=== PATIENT | female | born 1965 | race African-American/Black ===

== ENCOUNTER 2018-11-02 20:55 | Emergency (ER) | payer OTHER ==
[~2018-11-02] VITALS: Ht 170.2 cm; Wt 106.1 kg
[~2018-11-02 20:55] MED LIST: ASPI-831 PO; BENA5TAB33 PO
[2018-11-02 21:14] VITALS: Ht 170.2 cm; Wt 106.1 kg
[2018-11-02] MEDS ORDERED: CETI10TA19 PO (23:10)
[2018-11-02] MEDS ORDERED: BIOT5000 PO (23:10)
[2018-11-02] MEDS ORDERED: BENA10TA4 PO (23:12)
--- NOTE | 2018-11-03 00:54 | ERD ---
ER Documentation Chief Complaint Chief Complaint chest pain x 1 hour HPI This is a 53-year-old female with a past medical history of hypertension who is presenting with chest pain, beginning 1 hour prior to arrival. The patient repo rts that the pain only lasted a few seconds, but he had a couple episodes of this pain. The patient's first episode occurred at [facility] after having an argument with her . The patient does report being upset when these episodes occurred. The patient's last episode occurred prior to coming into the ER, and she has not had any other episodes since being able to calm down and relax. She denies any diaphoresis. She denies any lightheadedness or dizziness. She denies any nausea or vomiting. She denies any shortness of breath. The patient denies feeling sick recently. The patient denies fever or chills. The patient has had no headache or vision changes. The patient does not endorse neck or back pain. The patient denies abdominal pain. The patient denies changes to bowel movements or urination. The patient has had no focal deficits. The patient has had no weakness or numbness or tingling to the face or extremities. ROS All systems reviewed and are negative except as per history of present illness. Medications Home Meds Reported Medications Benazepril Hcl* (Benazepril Hcl*) 10 Mg Tablet, 10 MG PO DAILY, #30 TAB 11/02/18 Biotin (Biotin) 5,000 Mcg Tab.rapdis, 5000 MCG PO 11/02/18 Cetirizine Hcl* (Cetirizine Hcl*) 10 Mg Tablet, 10 MG PO DAILY, #30 TAB 11/02/18 Discontinued Reported Medications Benazepril Hcl* (Benazepril Hcl*) 5 Mg Tablet, 5 MG PO DAILY, TAB 01/04/15 Discontinued Scripts Aspirin (Aspirin) 81 Mg Chew, 81 MG PO DAILY for 90 Days, TAB Prov:EDGAR DOBBINS MD 01/05/15 Allergies Allergies: Coded Allergies: metoclopramide (Unverified Allergy, Unknown, 11/02/18) PMhx/Soc History of Surgery: Yes () Anesthesia Reaction: No Hx Neurological Disorder: No Hx Respiratory Disorders: No Hx Cardiac Disorders: Yes (Hypertension) Hx Psychiatric Problems: No Hx Miscellaneous Medical Probl: No Hx Alcohol Use: Yes Hx Substance Use: No Hx Tobacco Use: No FmHx Family History: No diabetes Physical Exam Vitals Vital Signs Date Temp Pulse Resp B/P (MAP) Pulse Ox O2 O2 Flow FiO2 Time Delivery Rate 11/02/18 97.2 89 18 161/95 100 21:14 (117) Physical Exam Const: No apparent distress, well-developed, well-nourished Head: Normocephalic, Atraumatic Eyes: Normal Conjunctiva. Extraocular movements intact. Pupils equal, round and reactive to light ENT: Normal External Ears, Nose and Mouth. Neck: Full range of motion. No meningismus. Resp: Clear to auscultation bilaterally, No wheezes, rales or rhonchi Cardio: Regular rate and rhythm. No murmurs, rubs or gallops Abd: Soft, non tender, non distended. Normal bowel sounds Skin: No petechiae or rashes Back: No midline tenderness. No CVA tenderness Ext: No cyanosis, or edema Neur: Awake and alert, oriented 4. Cranial nerves intact. No facial droop. Normal strength, sensation and coordination. Psych: Normal Mood and Affect Result Diagram: 11/02/187 11/02/182346 Results 24 hrs Laboratory Tests Test 11/02/18 23:47 White Blood Count 6.9 10^3/ul Red Blood Count 5.01 10^6/ul Hemoglobin 11.9 g/dl Hematocrit 38.5 % Mean Corpuscular Volume 76.8 fl Mean Corpuscular Hemoglobin 23.8 pg Mean Corpuscular Hemoglobin Concent 30.9 g/dl Red Cell Distribution Width 16.8 % Platelet Count 268 10^3/UL Mean Platelet Volume 9.1 fl Immature Granulocytes % 0.100 % Neutrophils % 49.2 % Lymphocytes % 36.8 % Monocytes % 9.8 % Eosinophils % 3.8 % Basophils % 0.3 % Nucleated Red Blood Cells % 0.0 /100WBC Immature Granulocytes # 0.010 10^3/ul Neutrophils # 3.4 10^3/ul Lymphocytes # 2.5 10^3/ul Monocytes # 0.7 10^3/ul Eosinophils # 0.3 10^3/ul Basophils # 0.0 10^3/ul Nucleated Red Blood Cells # 0.0 10^3/ul Sodium Level 140 mmol/L Potassium Level 3.9 mmol/L Chloride Level 106 mmol/L Carbon Dioxide Level 26 mmol/L Anion Gap 8 Blood Urea Nitrogen 12 mg/dl Creatinine 0.59 mg/dl Est Glomerular Filtrat Rate mL/min > 60 mL/min Glucose Level 120 mg/dl Calcium Level 9.6 mg/dl Troponin I < 0.012 ng/ml Procedures/[facility] MDM The patient's presentation warrants further investigation. Previous medical records, if available, were reviewed. LABS The patient's laboratory testing was obtained and reviewed. No emergent treatment was required unless described below. CBC: No E/o of systemic infection or thrombocytopenia. Mild microcytic anemia, not emergent. BMP: No E/o severe acidosis or alkalosis or renal failure or diabetic ketoacidosis Troponin: No E/o acute ischemia EKG EKG read by me: Rate/Rhythm: Regular rate and rhythm at a rate of 92 bpm Intervals: Normal [place]: Normal Impression: No evidence of acute ischemia or arrhythmia IMAGING Imaging and Radiology interpretation reviewed. CXR FINDINGS: Mediastinum: Unremarkable. Heart size: Normal. Pulmonary vasculature: No visible engorgement. Lungs: Clear. Costophrenic sulci: Clear. Bony structures: Grossly unremarkable for age. IMPRESSION: Unremarkable single view chest. Electronically viewed and signed by Physician Bernadette on 11/03/2018 00:11 TREATMENT/DISPOSITION The patient presents with a few episodes of transient chest pain lasting a few seconds each. The patient's symptoms could be related to stress or anxiety as her symptoms occurred after having an argument with her . That said, this is a diagnosis of exclusion. She does have a cardiac risk factor of hypertension, so a cardiac workup was completed for further assessment. The patient's chest xray does not reveal pneumonia or pneumothorax or pleural effusions or pulmonary edema. She does not have a widened mediastinum and does not have signs or symptoms concerning for thoracic aortic aneurysm or dissection. The patient does not have pneumomediastinum or signs concerning for esophageal tear or rupture. The patient has no clinical or radiographic signs of pericardial effusion or tamponade. The patient does not have pneumoperitoneum and I have decreased suspicion of viscus perforation as possible referred pain. The patient does not have a history of heart failure and I have low suspicion for this. The patient does not have a diagnosis of COPD and is not wheezing today. The patient is not tachypneic or hypoxic. The patient is breathing comfortably and without pleuritic pain. The patient is not on hormonal therapy. The patient has no history of clotting or bleeding disorders. The patient has no calf tenderness. The patient has had no hemoptysis. I have decreased suspicion for PE. The patient's troponin and EKG are reassuring. I have low suspicion for acute coronary syndrome. The patient's HEART score is equal to or less than 3. This stratifies the patient into the low risk (<1%) group for an major adverse cardiac event within the next 30 days. Shared decision making was enacted. The risks and benefits of admission and discharge were discussed with the patient and it was ultimately decided that the patient would be discharged with close outpatient follow up and evaluation for functional testing within 72 hours. Upon reevaluation of the patient, symptoms have improved. No emergent diagnoses were identified. At this time, I feel that the patient stable for discharge. The patient was instructed to follow-up with a primary care physician in 1-3 days. The patient will be given strict precautions with which to return to the emergency department. Prescriptions: None The patient's blood pressure was elevated at greater than 120/80 while in the emergency department. The patient was otherwise stable with no evidence of hypertensive urgency or emergency. The patient does not require admission for blood pressure control. I have discussed with the patient the risks of hypertension. I have instructed the patient to return to the ER for any new or worsening symptoms including chest pain, shortness of breath, headache, blurred vision, confusion, nausea, vomiting or LOC. I have advised the patient to follow up with the primary care physician for outpatient monitoring and treatment for hypertension in 1-3 days. Disclaimer: Inadvertent spelling and grammatical errors are likely due to EHR/dictation software use and do not reflect on the overall quality of patient care. Note that the electronic time recorded on this note does not necessarily reflect the actual time of the patient encounter. Departure Diagnosis: Primary Impression: Nonspecific chest pain Additional Impressions: Elevated blood pressure reading Microcytic anemia Condition: Stable MANDEEP LIVE MD Nov 03, 2018 00:53
[2018-11-03 01:12] VITALS: BP 137/97; PULSE 86; RESP 18
== END 2018-11-03 01:20 | disposition home or self-care (01) ==
LOC: E/R 20:55
DX: R07.9 Chest pain, unspecified (principal); I10 Essential (primary) hypertension; D50.9 Iron deficiency anemia, unspecified
CPT/HCPCS: 36415; 71045; 80048; 84484; 85025; 93005

== ENCOUNTER 2019-04-05 05:44 | Emergency (ER) | payer OTHER ==
[~2019-04-05] VITALS: Ht 170.2 cm; Wt 96.3 kg
[~2019-04-05 05:44] MED LIST changes: -ASPI-831 PO; +BENA10TA4 PO; -BENA5TAB33 PO; +BIOT5000 PO; +CETI10TA19 PO
[2019-04-05 05:45] VITALS: Ht 170.2 cm; Wt 96.3 kg
--- NOTE | 2019-04-05 06:08 | ERD ---
ER Documentation Chief Complaint Chief Complaint N/V X3DAYS WITH ABD PAIN HPI This is a 54-year-old woman complaining of diffuse abdominal cramping with a few episodes of clear nonbloody nonbilious emesis over the last 3 days. She denies fevers or chills, no diarrhea, no blood per rectum, no hematemesis, no complaints of chest pain or shortness of breath. ROS All systems reviewed and are negative except as per history of present illness. Medications Home Meds Active Scripts Ondansetron Hcl* (Zofran*) 4 Mg Tablet, 4 MG PO Q8H PRN for NAUSEA AND/OR VOMITING, #30 TAB Prov:JENNIFER GARCIA MD 04/05/19 Ibuprofen* (Motrin*) 600 Mg Tab, 600 MG PO Q8 PRN for PAIN AND/OR INFLAMMATION, #30 TAB Prov:JENNIFER GARCIA MD 04/05/19 Reported Medications Benazepril Hcl* (Benazepril Hcl*) 10 Mg Tablet, 10 MG PO DAILY, #30 TAB 11/02/18 Biotin (Biotin) 5,000 Mcg Tab.rapdis, 5000 MCG PO 11/02/18 Cetirizine Hcl* (Cetirizine Hcl*) 10 Mg Tablet, 10 MG PO DAILY, #30 TAB 11/02/18 Allergies Allergies: Coded Allergies: metoclopramide (Unverified Allergy, Unknown, 11/02/18) PMhx/Soc Hypertension, anxiety, obesity History of Surgery: Yes (HYSTERECTOMY, CHOLYCYSTECTOMY, COLONOSCOPY) Anesthesia Reaction: No Hx Neurological Disorder: No Hx Respiratory Disorders: No Hx Cardiac Disorders: Yes (Hypertension) Hx Psychiatric Problems: No Hx Miscellaneous Medical Probl: No Hx Alcohol Use: Yes Hx Substance Use: No Hx Tobacco Use: No Smoking Status: Unknown if ever smoked FmHx Family History: No diabetes Physical Exam Vitals Vital Signs Date Temp Pulse Resp B/P (MAP) Pulse Ox O2 O2 Flow FiO2 Time Delivery Rate 04/05/19 68 16 158/88 98 Room Air 08:27 (111) 04/05/19 70 16 128/88 99 Room Air 06:40 (101) 04/05/19 97.3 83 19 135/94 98 05:45 (108) Physical Exam GENERAL: Well-developed, well-nourished, well-hydrated, in no apparent distress, looks nontoxic in appearance CARDIAC: Regular rate and rhythm, no murmurs rubs or gallops LUNGS: Clear bilaterally no wheezing crackles or stridor ABDOMEN: Soft nontender, no guarding, no rigidity, no rebound, no psoas sign no obturator sign. EXTREMITIES: No clubbing cyanosis or edema, calves are bilaterally symmetrical, no Homans sign, no popliteal cord sign. Distal pulses equal and bilateral PSYCH: Normal affect without agitation or irritability Result Diagram: 04/05/19 0632 04/05/19 0632 Results 24 hrs Laboratory Tests Test 04/05/19 06:32 White Blood Count 9.5 10^3/ul Red Blood Count 5.11 10^6/ul Hemoglobin 12.4 g/dl Hematocrit 39.7 % Mean Corpuscular Volume 77.7 fl Mean Corpuscular Hemoglobin 24.3 pg Mean Corpuscular Hemoglobin Concent 31.2 g/dl Red Cell Distribution Width 17.9 % Platelet Count 304 10^3/UL Mean Platelet Volume 9.0 fl Immature Granulocytes % 0.400 % Neutrophils % 69.2 % Lymphocytes % 20.1 % Monocytes % 9.8 % Eosinophils % 0.3 % Basophils % 0.2 % Nucleated Red Blood Cells % 0.0 /100WBC Immature Granulocytes # 0.040 10^3/ul Neutrophils # 6.5 10^3/ul Lymphocytes # 1.9 10^3/ul Monocytes # 0.9 10^3/ul Eosinophils # 0.0 10^3/ul Basophils # 0.0 10^3/ul Nucleated Red Blood Cells # 0.0 10^3/ul Urine Color YELLOW Urine Clarity CLOUDY Urine pH 5.0 Urine Specific [place] 1.023 Urine Ketones 2+ mg/dL Urine Nitrite NEGATIVE mg/dL Urine Bilirubin NEGATIVE mg/dL Urine Urobilinogen 2+ mg/dL Urine Leukocyte Esterase NEGATIVE Letty/ul Urine Microscopic RBC 6 /HPF Urine Microscopic WBC 5 /HPF Urine Squamous Epithelial Cells MODERATE /HPF Urine Bacteria FEW /HPF Urine Mucus FEW /HPF Urine Hemoglobin 2+ mg/dL Urine Glucose NEGATIVE mg/dL Urine Total Protein 1+ mg/dl Sodium Level 142 mmol/L Potassium Level 3.2 mmol/L Chloride Level 102 mmol/L Carbon Dioxide Level 26 mmol/L Anion Gap 14 Blood Urea Nitrogen 6 mg/dl Creatinine 0.49 mg/dl Est Glomerular Filtrat Rate mL/min > 60 mL/min Glucose Level 136 mg/dl Calcium Level 9.1 mg/dl Total Bilirubin 0.5 mg/dl Direct Bilirubin 0.00 mg/dl Indirect Bilirubin 0.5 mg/dl Aspartate Amino Transf (AST/SGOT) 15 IU/L Alanine Aminotransferase (ALT/SGPT) 15 IU/L Alkaline Phosphatase 80 IU/L Troponin I < 0.012 ng/ml Total Protein 8.1 g/dl Albumin 4.2 g/dl Globulin 3.90 g/dl Albumin/Globulin Ratio 1.07 Lipase 60 U/L Current Medications Medications Dose Sig/Patricia Start Time Status Last (Trade) Ordered Route PRN Stop Time Admin Dose Reason Admin Sodium 1,000 ml @ Q1H STAT 04/05/19 DC 04/05/19 Chloride 1,000 mls/hr IV 06:23 06:35 04/05/19 07:22 Ondansetron 4 mg ONCE STAT 04/05/19 DC 04/05/19 HCl (Zofran IV 06:23 06:35 Inj) 04/05/19 06:24 40 ml ONCE STAT 04/05/19 DC Miscellaneous PO 06:23 Medication 04/05/19 06:24 (Gi Cocktail (2)) Belladonna/ 2 tab ONCE STAT 04/05/19 DC 04/05/19 Phenobarbital PO 06:23 06:36 () 04/05/19 06:24 Ketorolac 15 mg ONCE STAT 04/05/19 DC 04/05/19 Tromethamine IV 06:23 06:36 (Toradol) 04/05/19 06:24 Procedures/MDM IV line was established patient was placed on property assessment monitor rhythm strip revealed a sinus rhythm at about 80 bpm with upright P and T waves. Patient was afebrile I administered 1 L normal saline IV, Toradol 15 mg IV, Zofran 4 mg IV, GI cocktail p.o. CBC and electrolytes are normal, liver function tests were normal, troponin was negative, urinalysis negative for infection. Repeat abdominal examination was performed by me she has no guarding or rigidity, no McBurney's point tenderness, no Mills sign although given her complaints of abdominal pain I did tell her to return in 8 to 12 hours for reevaluation and reexamination or earlier if she develops worsening pain, vomiting, fever. Differential diagnoses considered, included but not limited to acute coronary syndrome, pulmonary embolism, aortic dissection, abdominal aortic aneurysm, sepsis, stroke, meningitis, encephalitis, pneumonia, appendicitis, cholecystitis, bowel obstruction, pyelonephritis, nephrolithiasis, cystitis, as well as metabolic, hematologic, and electrolyte abnormalities. As well as ab scess, cellulitis, fractures, and dislocations. Patient feels much better at this time, and vital signs are normal, symptoms have improved. I did give strict instructions to return to the ED if symptoms continue or worsen, patient will otherwise follow-up with primary care physician. Patient understood instructions and agreed to plan. Disclaimer: Inadvertent spelling and grammatical errors are likely due to EHR/dictation software use and do not reflect on the overall quality of patient care. Also, please note that the electronic time recorded on this note does not necessarily reflect the actual time of the patient encounter. Departure Diagnosis: Primary Impression: Abdominal pain Abdominal location: generalized Qualified Codes: R10.84 - Generalized abdominal pain Condition: Good JENNIFER GARCIA MD Apr 05, 2019 06:08
[2019-04-05] MEDS ORDERED: ONDANSETRON 4 MG INJ IV STA (06:23)
[2019-04-05] MEDS ORDERED: BELLADONNA/PHENOBARBITAL TAB PO STA (06:23)
[2019-04-05] MEDS: LIDOCAINE/MYLANTA 40 ML BTL PO STA ×2 (06:23→06:38)
[2019-04-05] MEDS ORDERED: SOD CHLORIDE 0.9% 1,000 ML IV STA (06:23)
[2019-04-05] MEDS ORDERED: KETOROLAC 15 MG INJ IV STA (06:23)
[2019-04-05] MEDS ORDERED: ONDA4TAB8 PO (07:58)
[2019-04-05] MEDS ORDERED: IBUP-1542 PO (07:58)
[2019-04-05 08:27] VITALS: BP 158/88; PULSE 68; RESP 16
== END 2019-04-05 08:28 | disposition home or self-care (01) ==
LOC: E/R 05:44
DX: R10.84 Generalized abdominal pain (principal); I10 Essential (primary) hypertension; E66.9 Obesity, unspecified; Z68.33 Body mass index [BMI] 33.0-33.9, adult
CPT/HCPCS: 36415; 80053; 81001; 83690; 84484; 85025; 96374; 96375; 99284; J1885; J2405; J7030

== ENCOUNTER 2019-04-07 17:48 | Inpatient (IN) | payer OTHER ==
[~2019-04-07] VITALS: Ht 170.2 cm; Wt 96.8 kg
[~2019-04-07 17:48] MED LIST changes: +CARAS PO; +FER325 PO; +IBUP-1542 PO; +ONDA4TAB8 PO; +PANT40TA3 PO
[2019-04-07] MEDS ORDERED: SOD CHLORIDE 0.9% 500 ML IV STA (18:27)
--- NOTE | 2019-04-07 19:57 | ERD ---
ER Documentation Chief Complaint Chief Complaint VOMITING SINCE MONDAY WITH DIZZINESS AND SYNCOPAL EPISODE HPI This is a 54-year-old female who is here for syncope. The patient was seen here on Monday for vomiting abdominal pain with a negative work-up and was sent home. The patient says that she is had nausea vomiting for the past 5 to 6 days but none today. She says she has a chronic history of anemia. She said today she went to the restroom she started feeling bad. She said she finished and went to the living room where she was sitting in a couch she called her family members of her because she was feeling very weak and dizzy. She then apparently passed out. Family states that she was unresponsive for about a minute. The patient says she does remember much of anything. She says she does vaguely remember her son yelling out her to wake up. She had no preceding symptoms other than generalized weakness and dizziness. She had no chest pain shortness of breath. No recent fever. The patient's had one bowel movement in the past 4 days but it has no urged to have one because she is really not eating much food. No headache no focal neurological complaints and speech change ROS All systems reviewed and are negative except as per history of present illness. Medications Home Meds Active Scripts Ondansetron Hcl* (Zofran*) 4 Mg Tablet, 4 MG PO Q8H PRN for NAUSEA AND/OR VOMITING, #30 TAB Prov:JENNIFER GARCIA MD 04/05/19 Ibuprofen* (Motrin*) 600 Mg Tab, 600 MG PO Q8 PRN for PAIN AND/OR INFLAMMATION, #30 TAB Prov:JENNIFER GARCIA MD 04/05/19 Reported Medications Benazepril Hcl* (Benazepril Hcl*) 10 Mg Tablet, 10 MG PO DAILY, #30 TAB 11/02/18 Biotin (Biotin) 5,000 Mcg Tab.rapdis, 5000 MCG PO 11/02/18 Cetirizine Hcl* (Cetirizine Hcl*) 10 Mg Tablet, 10 MG PO DAILY, #30 TAB 11/02/18 Allergies Allergies: Coded Allergies: metoclopramide (Unverified Allergy, Unknown, 11/02/18) PMhx/Soc History of Surgery: Yes (HYSTERECTOMY, CHOLYCYSTECTOMY, COLONOSCOPY) Anesthesia Reaction: No Hx Neurological Disorder: No Hx Respiratory Disorders: No Hx Cardiac Disorders: Yes (Hypertension) Hx Psychiatric Problems: No Hx Miscellaneous Medical Probl: No Hx Alcohol Use: Yes Hx Substance Use: No Hx Tobacco Use: No Smoking Status: Current every day smoker FmHx Family History: No coronary disease Physical Exam Vitals Vital Signs Date Temp Pulse Resp B/P (MAP) Pulse Ox O2 O2 Flow FiO2 Time Delivery Rate 04/07/19 98.5 90 23 140/88 94 Room Air 21:03 (105) 04/07/19 91 21 146/80 96 Room Air 20:30 (102) 04/07/19 88 21 154/86 98 Room Air 20:00 (108) 04/07/19 87 17 139/83 100 Room Air 19:30 (101) 04/07/19 88 132/79 19:06 (96) 84 136/77 (96) 102 116/63 (80) 04/07/19 87 15 136/77 96 Room Air 19:00 (96) 04/07/19 94 17 142/65 Room Air 18:30 (90) 04/07/19 97.7 80 20 111/74 98 17:57 (86) Physical Exam Const: Well-developed, well-nourished Head: Atraumatic, normocephalic Eyes: Normal Conjunctiva, PERRLA, EOMI, normal sclera, no nystagmus ENT: Normal External Ears, Nose and Mouth, moist mucus membranes. Neck: Full range of motion. No meningismus, no lymphadenopathy. Resp: Clear to auscultation bilaterally, no wheezing, rhonchi, rales Cardio: Regular rate and rhythm, no murmurs, S1 S2 present Abd: Soft, non tender x 4, non distended. Normal bowel sounds, no guarding or rebound, no pulsitile abdominal masses or bruits Skin: No petechiae or rashes, no ecchymosis , no maculopapular rash Back: No midline or flank tenderness Ext: No cyanosis, or edema, FROM x 4, normal inspection, neurovascularly intact x 4 Neur: Awake and alert, STR 5/5 x 4, sensation intact x 4, no focal findings, cerebellum intact Psych: Normal Mood and Affect Result Diagram: 04/07/19183804/07/191838 Results 24 hrs Laboratory Tests Test 04/07/19 18:39 White Blood Count 14.1 10^3/ul Red Blood Count 3.90 10^6/ul Hemoglobin 9.3 g/dl Hematocrit 30.3 % Mean Corpuscular Volume 77.7 fl Mean Corpuscular Hemoglobin 23.8 pg Mean Corpuscular Hemoglobin Concent 30.7 g/dl Red Cell Distribution Width 17.3 % Platelet Count 266 10^3/UL Mean Platelet Volume 8.7 fl Immature Granulocytes % 0.600 % Neutrophils % 79.6 % Lymphocytes % 11.5 % Monocytes % 7.9 % Eosinophils % 0.2 % Basophils % 0.2 % Nucleated Red Blood Cells % 0.0 /100WBC Immature Granulocytes # 0.080 10^3/ul Neutrophils # 11.2 10^3/ul Lymphocytes # 1.6 10^3/ul Monocytes # 1.1 10^3/ul Eosinophils # 0.0 10^3/ul Basophils # 0.0 10^3/ul Nucleated Red Blood Cells # 0.0 10^3/ul Prothrombin Time 13.9 Sec Prothrombin Time Ratio 1.1 INR International Normalized Ratio 1.06 Activated Partial Thromboplast Time 21.9 Sec Sodium Level 143 mmol/L Potassium Level 3.2 mmol/L Chloride Level 105 mmol/L Carbon Dioxide Level 29 mmol/L Anion Gap 9 Blood Urea Nitrogen 26 mg/dl Creatinine 0.50 mg/dl Est Glomerular Filtrat Rate mL/min > 60 mL/min Glucose Level 164 mg/dl Calcium Level 8.0 mg/dl Total Bilirubin 0.3 mg/dl Direct Bilirubin 0.00 mg/dl Indirect Bilirubin 0.3 mg/dl Aspartate Amino Transf (AST/SGOT) 14 IU/L Alanine Aminotransferase (ALT/SGPT) 17 IU/L Alkaline Phosphatase 47 IU/L Troponin I < 0.012 ng/ml Total Protein 6.5 g/dl Albumin 3.2 g/dl Globulin 3.30 g/dl Albumin/Globulin Ratio 0.96 Current Medications Medications Dose Sig/Patricia Start Time Status Last (Trade) Ordered Route PRN Stop Time Admin Dose Reason Admin Sodium 500 ml @ Q1H STAT 04/07/19 DC 04/07/19 Chloride 500 mls/hr IV 18:27 19:35 04/07/19 19:26 Procedures/MDM EKG: Rate/Rhythm: Normal sinus rhythm QRS, ST, QT: NORMAL IN, QRS, prolonged QT] Impression: Abnormal EKG [facility] [address], [place], [place] [address] Radiology Main Line: [phone] DIAGNOSTIC IMAGING REPORT Patient: AJIT TEJADA : 1965 Age: 54 Sex: F MR #: [id number] DOS: 04/07/19 1827 Ordering MD: JULIANA PULIDO DO Location: E/R Room/Bed: PROCEDURE: CT BRAIN WITHOUT CONTRAST CLINICAL INDICATION: 54 year-old female. CVA. TECHNIQUE: A CT of the brain was performed on a multi-slice CT scanner utilizing axial imaging from the skull base through the vertex without IV contrast. Multiplanar reformatted images were made. Images were reviewed on a PACS workstation. One or more the following dose reduction techniques were utilized: Automated exposure control, adjustment of mA/ or kV according to patient's size, or use of iterative reconstruction technique. DICOM images are available for review. The CTDIvol = 39.64 mGy. DLP = or 634.23 mGy.cm. COMPARISON: None FINDINGS: No mass effect or midline shift. Normal ventricles for age. No acute intra-axial or extra-axial hemorrhage. No subdural collection. [place] - white matter differentiation is maintained. Visualized paranasal sinuses are clear. Mastoid air cells are clear. IMPRESSION: Negative noncontrast CT brain RPTAT: HLRS Physician Lea Date Time Electronically viewed and signed by Physician Lea on 04/07/2019 20:42 RS/ CC: JULIANA PULIDO DO [id number] [place] [id number] Radiology Main Line: [phone] DIAGNOSTIC IMAGING REPORT Patient: AJIT TEJADA : 1965 Age: 54 Sex: F MR #: [id number] DOS: 04/07/19 1827 Ordering MD: JULIANA PULIDO DO Location: E/R Room/Bed: PROCEDURE: DX CHEST 1 VIEW CLINICAL INDICATION: 54 year-old. Syncope. ED patient. TECHNIQUE: AP Portable chest. COMPARISON: 01/04/2015 elevated right hemidiaphragm, unchanged. Normal cardiac and mediastinal configuration. FINDINGS: Absent Aortic calcified plaque present. No CHF or hilar enlargement. Lungs are clear. Multiple surgical clips in the left upper quadrant. IMPRESSION: No acute disease. RPTAT: [facility] Physician Lea Date Time Electronically viewed and signed by Marily Man Physician on 04/07/2019 20:41 RS/ CC: JULIANA PULIDO DO [id number] Patient's syncopal symptoms are unstable at this time and require inpatient workup. No evidence of PE or dissection at this time but occult ischemia or fatal dysrhythmia cannot be ruled out. Departure Diagnosis: Primary Impression: Syncope Syncope type: unspecified Qualified Codes: R55 - Syncope and collapse Condition: Stable JULIANA PULIDO DO Apr 07, 2019 19:57
[2019-04-07] MEDS ORDERED: SOD CHLORIDE 0.9% 1,000 ML IV SCH (21:10)
[2019-04-07] MEDS ORDERED: POTASSIUM CHLORIDE (SR) 20 MEQ TAB PO STA (21:28)
[2019-04-07] MEDS ORDERED: ACETAMINOPHEN 325 MG TAB PO PRN ×2 (21:30)
[2019-04-07] MEDS ORDERED: NITROGLYCERIN (SL) 0.4 MG TAB SL PRN (21:30)
[2019-04-07] MEDS ORDERED: NACL 0.9% 3 ML SYG IV SCH (21:30)
[2019-04-07] MEDS ORDERED: BISACODYL (EC) 5 MG TAB PO PRN (21:30)
[2019-04-07] MEDS ORDERED: ONDANSETRON 4 MG INJ IV PRN (21:30)
[2019-04-07] MEDS ORDERED: DOCUSATE SODIUM 100 MG CAP PO PRN (21:30)
[2019-04-07] MEDS ORDERED: IOHEXOL 300MG/ML 150 ML BTL ONE (21:37)
[2019-04-07] MEDS ORDERED: SOD CHLORIDE 0.9% 100 ML ONE (21:37)
--- NOTE | 2019-04-07 22:42 | HP ---
Date/Time of Note Date/Time of Note DATE: 04/07/19 TIME: 22:41 Assessment/Plan VTE Prophylaxis SCD applied (from [facility]): Yes Pharmacological prophylaxis: NA/contraindicated Pharm contraindication: low risk/ambulating Assessment/Plan Hospital Course This is a 54-year-old female being admitted to the telemetry floor for: #1 syncope: Vasovagal/orthostatic versus neurocardiogenic versus cardiogenic versus situational: I suspect there may be some vasovagal component to this. Patient does appear to be dehydrated. We will hydrate the patient with normal saline. Her hemoglobin also appears to have dropped from 12 the 9. She denies any bleeding. Given that she did have a colonoscopy approximately 2 weeks ago with removal of polyps we will check a stool occult blood. Will check an echocardiogram. And carotid Doppler. Monitor the patient on telemetry. CT brain negative. Monitor on telemetry. #2 nausea and vomiting with epigastric pain: I will obtain a CT scan of the abdomen and pelvis with IV contrast to further assess. She recently had a colonoscopy approximately 2 weeks ago and had 9 polyps removed. Her hemoglobin has dropped over the last 2 days from 12-9. We will check a stool occult blood. Given that she also has epigastric pain will consult GI for further evaluation. Dr. lora. Pepcid IV #3 chronic anemia: She does have elevated BUN which could be multifactorial secondary to underlying dehydration/blood loss. Patient's hemoglobin was 12.3 on 09/05 and today it is 9.4. She denies any bleeding. She did have a colonoscopy approximately 2 weeks ago with 9 polyps removed. Will check CBC e very 6 hours. Will consult GI #4 dehydration: We will hydrate the patient with normal saline. #5 hypokalemia: Secondary to poor p.o. intake, GI losses. Will replete we will also check a magnesium level #6 leukocytosis: Afebrile. No overt signs of infection. Will monitor closely. This could be a stress reaction. #7 hypertension: Normal medications as indicated #8 DVT GI prophylaxis: SCDs, Pepcid IV Further treatment strategy will be implemented as per the clinical course. Result Diagram: 04/07/19183804/07/19 1839 Results 24hrs Laboratory Tests Test 04/07/19 18:39 White Blood Count 14.1 #H Red Blood Count 3.90 #L Hemoglobin 9.3 #L Hematocrit 30.3 #L Mean Corpuscular Volume 77.7 L Mean Corpuscular Hemoglobin 23.8 L Mean Corpuscular Hemoglobin Concent 30.7 L Red Cell Distribution Width 17.3 H Platelet Count 266 Mean Platelet Volume 8.7 Immature Granulocytes % 0.600 H Neutrophils % 79.6 H Lymphocytes % 11.5 L Monocytes % 7.9 Eosinophils % 0.2 Basophils % 0.2 Nucleated Red Blood Cells % 0.0 Immature Granulocytes # 0.080 H Neutrophils # 11.2 H Lymphocytes # 1.6 Monocytes # 1.1 H Eosinophils # 0.0 Basophils # 0.0 Nucleated Red Blood Cells # 0.0 Prothrombin Time 13.9 Prothrombin Time Ratio 1.1 INR International Normalized Ratio 1.06 Activated Partial Thromboplast Time 21.9 L Sodium Level 143 Potassium Level 3.2 L Chloride Level 105 Carbon Dioxide Level 29 Anion Gap 9 Blood Urea Nitrogen 26 H Creatinine 0.50 Est Glomerular Filtrat Rate mL/min > 60 Glucose Level 164 Calcium Level 8.0 L Magnesium Level 1.2 L Total Bilirubin 0.3 Direct Bilirubin 0.00 Indirect Bilirubin 0.3 Aspartate Amino Transf (AST/SGOT) 14 L Alanine Aminotransferase (ALT/SGPT) 17 Alkaline Phosphatase 47 Troponin I < 0.012 Total Protein 6.5 Albumin 3.2 L Globulin 3.30 H Albumin/Globulin Ratio 0.96 HPI/ROS Admit Date/Time Admit Date/Time Hx of Present Illness Chief complaint: Syncope, nausea vomiting This is a 54-year-old female who is here for syncope. The patient was seen here on Monday for vomiting abdominal pain with a negative work-up and was sent home. The patient says that she is had nausea vomiting since Monday and her last BM was moved Monday she says she has a chronic history of anemia. She said today she went to the restroom she started feeling bad. She said she finished and went to the living room where she was sitting in a couch she called her family members of her because she was feeling very weak and dizzy. She then apparently passed out. Family states that she was unresponsive for about a minute. The patient says she does remember much of anything. She says she does vaguely remember her son yelling out her to wake up. She had no preceding symptoms other than generalized weakness and dizziness. She had no chest pain shortness of breath. No recent fever. The patient's had one bowel movement in the past 4 days but it has no urged to have one because she is really not eating much food. No headache no focal neurological complaints and speech change She approximately 2 weeks ago had a colonoscopy for the removed 9 polyps. Allergies: Reglan Medications: Benazepril 10 mg p.o. daily Ibuprofen every 8 hours as needed Zofran 4 mg p.o. every 8 hours as needed Cetirizine 10 mg p.o. daily Biotin 5000 mcg p.o. daily ROS Const: As per HPI Eyes : No pain discharge or redness or change in visual acuity ENT: No pain, sore throat, congestion, congestion, dysphagia or discharge Respiratory: No shortness of breath, cough, sputum, wheezing, or pleuritic pain Cardiovascular: No chest pain, palpitation, PND, or edema GI : As per HPI Genitourinary: No dysuria, hematuria, flank pain , discharge or CVA tenderness Musculoskeletal: No joint pain, back pain, neck pain, restricted range of motion in neck or joints Skin: No rash, bruising or hives Neuro: No headache, dizziness, syncope, seizure, focal weakness Endocrine: No polyuria, polydipsia, temperature intolerance Psych: No hallucination, depression, anxiety or suicidal ideation PMH/Family/Social Past Medical History htn Colonic polyps removed via colonoscopy approximately 9 days ago Medications Current Medications Sodium Chloride 1,000 ml @ 80 mls/hr [id number] IV ; Start 04/07/19 at 21:10; Stop 04/08/19 at 09:39 Ondansetron HCl (Zofran Inj) 4 mg ER BRIDGE PRN IV NAUSEA/VOMITING; Start 04/07/19 at 21:30; Stop 04/08/19 at 21:29 Acetaminophen (Tylenol Tab) 650 mg ER BRIDGE PRN PO .MILD PAIN 1-3 OR TEMP; Start 04/07/19 at 21:30; Stop 04/08/19 at 21:29 IV Flush (NS 3 ml) 3 ml PER PROTOCOL IV ; Start 04/07/19 at 21:30 Ondansetron HCl (Zofran Inj) 4 mg Q6H PRN IV NAUSEA/VOMITING; Start 04/07/19 at 21:30 Nitroglycerin (Nitroglycerin (Sl Tab) 0.4 Mg) 1 tab Q5M PRN SL .CHEST PAIN; Start 04/07/19 at 21:30 Acetaminophen (Tylenol Tab) 650 mg Q6H PRN PO .PAIN 1-3 OR TEMP; Start 04/07/19 at 21:30 Docusate Sodium (Colace) 100 mg Q12H PRN PO .CONSTIPATION; Start 04/07/19 at 21:30 Bisacodyl (Dulcolax) 5 mg DAILY PRN PO .CONSTIPATION; Start 04/07/19 at 21:30 Coded Allergies: metoclopramide (Unverified Allergy, Unknown, 11/02/18) Past Surgical History hysterectomy, cholecystectomy, colonoscopy 9 days ago where they removed polyps Family History Significant Family History: no pertinent family hx Social History Alcohol Use: none Smoking Status: Former smoker Drug Use: none Exam/Review of Systems Vital Signs Vitals Vital Signs Date Temp Pulse Resp B/P (MAP) Pulse Ox O2 O2 Flow FiO2 Time Delivery Rate 04/07/19 101 24 133/91 98 Room Air 22:00 (105) 04/07/19 98.5 21:03 Exam Exam General: Patient currently lying in bed in no acute distress HEENT: Atraumatic, normocephalic. The pupils are equal, round and reactive. Extraocular motor are intact, mucous membranes dry Neck: Supple with full range of motion. No rigidity or meningismus Chest: Nontender Lungs: Clear to auscultation bilaterally no crackles rales or wheezing Heart: Normal S1-S2, Regular rhythm and rate. No murmur, S3, or S4 Abdomen: Soft , epigastric tenderness to palpation nondistended , bowel sounds are present. No guarding no rebound tenderness , No masses or organomegaly. No costovertebral temporal angle mass Extremities: Normal to inspection, no edema no cyanosis Neurologic: Normal mental status, speech normal, cranial nerves II through XII are intact, motor and sensory are intact, Additional Comments PROCEDURE: CT BRAIN WITH CONTRAST CLINICAL INDICATION: 54 year-old female. Syncope. TECHNIQUE: A CT of the brain was performed on a multi-slice CT scanner utilizing axial imaging from the skull base through the vertex with IV contrast. Multiplanar reformatted images were made. One or more the following dose reduction techniques were utilized: Automated exposure control, adjustment of the mA/ or kV according to patient's size, or use of iterative reconstruction technique. DICOM images are available for review on a PACS workstation. The CTDIvol = 39.64 mGy. DLP = or 634.23 mGy.cm. CONTRAST: 60 cc Omnipaque-300 IV COMPARISON: CT brain without contrast 04/07/2019. FINDINGS: No mass effect or midline shift. Normal ventricles for age. No acute intra-axial or extra-axial hemorrhage. No subdural collection. [place] - white matter differentiation is maintained. No abnormal enhancement. Visualized paranasal sinuses are clear. Mastoid air cells are clear. IMPRESSION: 1. Negative contrast enhanced CT brain exam. RPTAT: HLRS Marily Man Physician Date Time Electronically viewed and signed by Marily Man Physician on 04/07/2019 22:25 RS/ CC: JULIANA PULIDO DO [id number] PROCEDURE: CT BRAIN WITHOUT CONTRAST CLINICAL INDICATION: 54 year-old female. CVA. TECHNIQUE: A CT of the brain was performed on a multi-slice CT scanner utilizing axial imaging from the skull base through the vertex without IV contrast. Multiplanar reformatted images were made. Images were reviewed on a PACS workstation. One or more the following dose reduction techniques were utili zed: Automated exposure control, adjustment of mA/ or kV according to patient's size, or use of iterative reconstruction technique. DICOM images are available for review. The CTDIvol = 39.64 mGy. DLP = or 634.23 mGy.cm. COMPARISON: None FINDINGS: No mass effect or midline shift. Normal ventricles for age. No acute intra-axial or extra-axial hemorrhage. No subdural collection. [place] - white matter differentiation is maintained. Visualized paranasal sinuses are clear. Mastoid air cells are clear. IMPRESSION: Negative noncontrast CT brain RPTAT: HLRS Marily Man Physician Date Time Electronically viewed and signed by Marily Man Physician on 04/07/2019 20:42 RS/ CC: JULIANA PULIDO DO [id number] PROCEDURE: DX CHEST 1 VIEW CLINICAL INDICATION: 54 year-old. Syncope. ED patient. TECHNIQUE: AP Portable chest. COMPARISON: 01/04/2015 elevated right hemidiaphragm, unchanged. Normal cardiac and mediastinal configuration. FINDINGS: Absent Aortic calcified plaque present. No CHF or hilar enlargement. Lungs are clear. Multiple surgical clips in the left upper quadrant. IMPRESSION: No acute disease. RPTAT: HLRS Marily Man Physician Date Time Electronically viewed and signed by Marily Man Physician on 04/07/2019 20:41 RS/ CC: JULIANA PULIDO DO [id number] ZIA ADORNO Apr 07, 2019 22:42
[2019-04-07 23:00] VITALS: Ht 170.2 cm; Wt 96.8 kg
[2019-04-07] MEDS ORDERED: IOHEXOL 14.3 MG(I)/ML (ADULT) BTL PO ONE (23:30)
[2019-04-07] MEDS: morphine 2 MG INJ IV PRN (23:58)
[2019-04-08] VITALS: BP 157/77; PULSE 67
[2019-04-08] MEDS ORDERED: MAGNESIUM SULFATE 3 GM in DEXTROSE 5% 100 ML IVPB SCH (00:30)
[2019-04-08] MEDS ORDERED: IOHEXOL 300MG/ML 150 ML BTL ONE (00:50)
[2019-04-08] MEDS ORDERED: SOD CHLORIDE 0.9% 100 ML ONE (00:50)
[2019-04-08 04:00] VITALS: BP 134/79; PULSE 92
[2019-04-08] MEDS: morphine 2 MG INJ IV PRN ×3 (05:01→19:32)
[2019-04-08 07:47] VITALS: BP 138/62; PULSE 54; RESP 18
[2019-04-08] MEDS: POLYETHYLENE GLYCOL 17 GM PACKET PO SCH ×3 (08:13→09:00)
[2019-04-08] MEDS: DOCUSATE SODIUM 100 MG CAP PO SCH ×2 (08:13→22:31)
[2019-04-08] MEDS: FAMOTIDINE 20 MG INJ IV SCH (08:14)
[2019-04-08] MEDS: LORATADINE 10 MG TAB PO SCH (08:14)
[2019-04-08] MEDS: ONDANSETRON 4 MG INJ IV PRN (10:30)
[2019-04-08] MEDS: SOD CHLORIDE 0.9% 1,000 ML IV SCH (10:30)
[2019-04-08] MEDS: POTASSIUM CHLORIDE 100 ML IVPB SCH ×2 (11:51→12:30)
[2019-04-08 11:58] VITALS: BP 149/78; PULSE 90; RESP 18
[2019-04-08] MEDS ORDERED: NA PHOSPHATE/BIPHOS 133 ML ENEMA PR PRN (12:30)
[2019-04-08] MEDS ORDERED: POTASSIUM CHLORIDE (SR) 20 MEQ TAB PO ONE (13:00)
--- NOTE | 2019-04-08 13:36 | RADRPT ---
Echocardiogram Report Patient Name: AJIT TEJADAPatient ID: [id number] : 1965 (54y 1m)Study Date: 04/08/2019 7:51:30 AM Gender: FAccession #: [id number] Tech: Daniel Son [facility] Location: [id number] Ref.Physician: ZIA ADORNO Height(Cm): BSA: Weight(Kg): Quality: AdequateOrder Physician: ZIA ADORNO Account #: Procedures: Echocardiographic Report: Transthoracic echocardiogram with complete 2D, M-Mode, and doppler examination. Indications: Syncope. Measurements: 2D/M Mode Doppler Measurement Value Normal Range Measurement Value Normal Range LVIDd 2D 4.5 [ 3.8 - 5.2 ] cm AV Peak Matt 1.8 [ 100.0 - 170.0 ] cm/sec LVIDs 2D 1.9 [ 2.2 - 3.5 ] cm AV Peak PG 13.0 [ 2.0 - 9.0 ] mmHg LVPWd 2D 0.9 [ 0.6 - 0.9 ] cm LVOT Peak Matt 1.4 [ 70.0 - 110.0 ] cm/sec IVSd 2D 0.9 [ 0.6 - 0.9 ] cm LVOT Peak PG 8.0 [ 2.0 - 6.0 ] mmHg AoR Diam 2D 2.6 [ 2.3 - 3.1 ] cm MV E Peak Matt 0.6 [ 60.0 - 130.0 ] cm/sec EDV 2D 93.4 [ 46.0 - 106.0 ] ml MV A Peak Matt 0.7 [ 100.0 - 120.0 ] cm/sec ESV 2D 11.3 [ 14.0 - 42.0 ] ml MV E/A 0.9 [ 0.8 - 1.5 ] ratio EF 2D 87.9 [ 54.0 - 74.0 ] percent MV Decel Time 158 [ 104 - 258 ] msec LA Dimen 2D 2.9 [ 2.7 - 3.8 ] cm Lat E` Matt 0.1 [ 10.0 - 15.0 ] cm/sec Lateral E/E` 4.6 [ 1.0 - 2.0 ] ratio Med E` Matt 0.1 cm/sec MV E/A 0.9 [ 0.8 - 1.5 ] ratio TR Peak Matt 2.3 [ 100.0 - 280.0 ] cm/sec TR Peak PG 20.0 mmHg RVSP 23.0 [ 10.0 - 36.0 ] mmHg RA Pressure 3.0 mmHg Findings: Left Ventricle: Normal left ventricular systolic function. Normal left ventricular cavity size. Normal left ventricular wall thickness. Ejection fraction is visually estimated at 60-65 %. Tissue Doppler/Mitral Doppler indices are consistent with impaired relaxation (Stage I diastolic dysfunction). Right Ventricle: Normal right ventricular size. Normal right ventricular systolic function. Left Atrium: The left atrium is normal in size. Right Atrium: The right atrium is normal in size. Mitral Valve: Mitral valve leaflets appear mildly thickened. Mild mitral annular calcification. Trace mitral regurgitation. Aortic Valve: Normal appearance of the aortic valve. No significant aortic stenosis or insufficiency. Tricuspid Valve: Normal appearance and function of the tricuspid valve with trace physiologic regurgitation. Normal right ventricular systolic pressure. The estimated Peak RVSP is 23 mmHg. Pulmonic Valve: Normal pulmonic valve appearance. Pericardium: Normal pericardium with no significant pericardial effusion. Aorta: Normal aortic root. IVC: Normal size and normal respiratory collapse consistent with normal right atrial pressure. Conclusions: Normal left ventricular systolic function. Normal left ventricular cavity size. Normal left ventricular wall thickness. Ejection fraction is visually estimated at 60-65 %. Tissue Doppler/Mitral Doppler indices are consistent with impaired relaxation (Stage I diastolic dysfunction). ). Mitral valve leaflets appear mildly thickened. Mild mitral annular calcification. Trace mitral regurgitation. Normal appearance and function of the tricuspid valve with trace physiologic regurgitation. Normal right ventricular systolic pressure. The estimated Peak RVSP is 23 mmHg. Electronically Signed By: Murali Dubois 2019-04-08 13:35:37 PDT
--- NOTE | 2019-04-08 15:09 | PN ---
Date/Time of Note Date/Time of Note DATE: 04/08/19 TIME: 14:46 Assessment/Plan VTE Prophylaxis [place] [facility] [place]: 1 [place]CD applied [place] [facility] [place] Yes Pharmacological prophylaxis: NA/contraindicated Pharm contraindication: other Lines/Catheters IV Catheter Type (from [facility]): Peripheral IV Urinary Cath still in place: No Assessment/Plan Hospital Course #1 syncope secondary to hypovolemia from dehydration and/or acute blood loss Patient with azotemia suggesting possible GI bleed and/or dehydration, continue IV fluids CT brain negative Follow-up on echo and carotid Doppler Monitor on telemetry #2 nausea and vomiting with epigastric pain: CT abdomen is negative for acute findings No sick contacts or diarrhea GI consultation obtained with Dr. Yue Bautista IV Patient status post recent colonoscopy approximately 2 weeks ago with removal of polyps, follow-up on stool occult blood #3 Anemia possible secondary to GI bleed Patient with recent hemoglobin that was within normal limits several days ago Drop in hemoglobin may be dilutional and/or secondary to GI bleed GI consultation obtained Follow-up on stool occult Patient denies any adeline blood or melena Patient status post colonoscopy 2 weeks ago with 9 polyps removed #4 Constipation Enema #5 Hypokalemia/hypomagnesemia Repleted #6 leukocytosis: Afebrile. No overt signs of infection. Will monitor closely. This could be a stress reaction. #7 hypertension: Resume benazepril #8 DVT GI prophylaxis: SCDs, Pepcid IV Result Diagram: 04/08/19 1032 04/08/19 0532 Results 24hrs Laboratory Tests Test 04/07/19 18:39 04/08/19 05:32 04/08/19 10:32 White Blood Count 14.1 #H 11.5 H 11.9 H Red Blood Count 3.90 #L 3.45 L 3.30 L Hemoglobin 9.3 #L 8.6 L 8.3 L Hematocrit 30.3 #L 27.1 L 26.2 L Mean Corpuscular Volume 77.7 L 78.6 L 79.4 L Mean Corpuscular Hemoglobin 23.8 L 24.9 L 25.2 L Mean Corpuscular Hemoglobin Concent 30.7 L 31.7 L 31.7 L Red Cell Distribution Width 17.3 H 17.3 H 17.4 H Platelet Count 266 272 255 Mean Platelet Volume 8.7 9.0 8.8 Immature Granulocytes % 0.600 H 0.300 0.400 Neutrophils % 79.6 H 73.0 74.5 Lymphocytes % 11.5 L 18.5 17.8 Monocytes % 7.9 7.7 6.7 Eosinophils % 0.2 0.3 0.4 Basophils % 0.2 0.2 0.2 Nucleated Red Blood Cells % 0.0 0.0 0.0 Immature Granulocytes # 0.080 H 0.040 H 0.050 H Neutrophils # 11.2 H 8.4 H 8.9 H Lymphocytes # 1.6 2.1 2.1 Monocytes # 1.1 H 0.9 0.8 Eosinophils # 0.0 0.0 0.1 Basophils # 0.0 0.0 0.0 Nucleated Red Blood Cells # 0.0 0.0 0.0 Prothrombin Time 13.9 Prothrombin Time Ratio 1.1 INR International Normalized Ratio 1.06 Activated Partial Thromboplast Time 21.9 L Sodium Level 143 143 Potassium Level 3.2 L 3.4 L Chloride Level 105 106 Carbon Dioxide Level 29 29 Anion Gap 9 8 Blood Urea Nitrogen 26 H 17 # Creatinine 0.50 0.50 Est Glomerular Filtrat Rate mL/min > 60 > 60 Glucose Level 164 128 Calcium Level 8.0 L 8.2 L Magnesium Level 1.2 L 2.2 # Total Bilirubin 0.3 0.3 Direct Bilirubin 0.00 0.00 Indirect Bilirubin 0.3 0.3 Aspartate Amino Transf (AST/SGOT) 14 L 14 L Alanine Aminotransferase (ALT/SGPT) 17 13 Alkaline Phosphatase 47 54 Troponin I < 0.012 Total Protein 6.5 6.4 Albumin 3.2 L 3.2 L Globulin 3.30 H 3.20 Albumin/Globulin Ratio 0.96 1.00 Hemoglobin A1c 5.8 Iron Level 41 Total Iron Binding Capacity 285 Percent Iron Saturation 14 L Ferritin 32.6 Triglycerides Level 79 Cholesterol Level 126 LDL Cholesterol, Calculated 81 HDL Cholesterol 29 L Cholesterol/HDL Ratio 4.3 Thyroid Stimulating Hormone (TSH) 0.909 Subjective 24 Hr Interval Summary Gastrointestinal: nausea, vomiting Exam/Review of Systems Exam Vitals Vital Signs Date Temp Pulse Resp B/P (MAP) Pulse Ox O2 O2 Flow FiO2 Time Delivery Rate 04/08/19 98.2 90 18 149/78 98 11:58 (101) 04/07/19 Room Air 22:30 Intake and Output 04/07/19 04/07/19 04/08/19 1515:00 23:00 07:00 IntakeIntake Total 156 ml BalanceBalance 156 ml Constitutional: alert, oriented Respiratory: clear to auscultation Cardiovascular: regular rate and rhythm Gastrointestinal: soft; No distended Musculoskeletal: nl extremities to inspection Results Results 24hrs Laboratory Tests Test 04/07/19 18:39 04/08/19 05:32 04/08/19 10:32 White Blood Count 14.1 #H 11.5 H 11.9 H Red Blood Count 3.90 #L 3.45 L 3.30 L Hemoglobin 9.3 #L 8.6 L 8.3 L Hematocrit 30.3 #L 27.1 L 26.2 L Mean Corpuscular Volume 77.7 L 78.6 L 79.4 L Mean Corpuscular Hemoglobin 23.8 L 24.9 L 25.2 L Mean Corpuscular Hemoglobin Concent 30.7 L 31.7 L 31.7 L Red Cell Distribution Width 17.3 H 17.3 H 17.4 H Platelet Count 266 272 255 Mean Platelet Volume 8.7 9.0 8.8 Immature Granulocytes % 0.600 H 0.300 0.400 Neutrophils % 79.6 H 73.0 74.5 Lymphocytes % 11.5 L 18.5 17.8 Monocytes % 7.9 7.7 6.7 Eosinophils % 0.2 0.3 0.4 Basophils % 0.2 0.2 0.2 Nucleated Red Blood Cells % 0.0 0.0 0.0 Immature Granulocytes # 0.080 H 0.040 H 0.050 H Neutrophils # 11.2 H 8.4 H 8.9 H Lymphocytes # 1.6 2.1 2.1 Monocytes # 1.1 H 0.9 0.8 Eosinophils # 0.0 0.0 0.1 Basophils # 0.0 0.0 0.0 Nucleated Red Blood Cells # 0.0 0.0 0.0 Prothrombin Time 13.9 Prothrombin Time Ratio 1.1 INR International Normalized Ratio 1.06 Activated Partial Thromboplast Time 21.9 L Sodium Level 143 143 Potassium Level 3.2 L 3.4 L Chloride Level 105 106 Carbon Dioxide Level 29 29 Anion Gap 9 8 Blood Urea Nitrogen 26 H 17 # Creatinine 0.50 0.50 Est Glomerular Filtrat Rate mL/min > 60 > 60 Glucose Level 164 128 Calcium Level 8.0 L 8.2 L Magnesium Level 1.2 L 2.2 # Total Bilirubin 0.3 0.3 Direct Bilirubin 0.00 0.00 Indirect Bilirubin 0.3 0.3 Aspartate Amino Transf (AST/SGOT) 14 L 14 L Alanine Aminotransferase (ALT/SGPT) 17 13 Alkaline Phosphatase 47 54 Troponin I < 0.012 Total Protein 6.5 6.4 Albumin 3.2 L 3.2 L Globulin 3.30 H 3.20 Albumin/Globulin Ratio 0.96 1.00 Hemoglobin A1c 5.8 Iron Level 41 Total Iron Binding Capacity 285 Percent Iron Saturation 14 L Ferritin 32.6 Triglycerides Level 79 Cholesterol Level 126 LDL Cholesterol, Calculated 81 HDL Cholesterol 29 L Cholesterol/HDL Ratio 4.3 Thyroid Stimulating Hormone (TSH) 0.909 Medications Medication Current Medications IV Flush (NS 3 ml) 3 ml PER PROTOCOL IV ; Start 04/07/19 at 21:30 Ondansetron HCl (Zofran Inj) 4 mg Q6H PRN IV NAUSEA/VOMITING Last administered on 04/08/19at 10:30; Admin Dose 4 MG; Start 04/07/19 at 21:30 Nitroglycerin (Nitroglycerin (Sl Tab) 0.4 Mg) 1 tab Q5M PRN SL .CHEST PAIN; Start 04/07/19 at 21:30 Acetaminophen (Tylenol Tab) 650 mg Q6H PRN PO .PAIN 1-3 OR TEMP; Start 04/07/19 at 21:30 Docusate Sodium (Colace) 100 mg Q12H PRN PO .CONSTIPATION; Start 04/07/19 at 21:30 Bisacodyl (Dulcolax) 5 mg DAILY PRN PO .CONSTIPATION; Start 04/07/19 at 21:30 Morphine Sulfate (morphine) 2 mg Q4H PRN IV SEVERE PAIN LEVEL 7-10 Last administered on 04/08/19at 10:31; Admin Dose 2 MG; Start 04/07/19 at 23:30 Docusate Sodium (Colace) 100 mg BID PO Last administered on 04/08/19at 08:13; Admin Dose 100 MG; Start 04/08/19 at 09:00 Polyethylene Glycol (Miralax) 17 gm DAILY PO ; Start 04/08/19 at 09:00 Loratadine (Claritin) 10 mg DAILY PO Last administered on 04/08/19at 08:14; Admin Dose 10 MG; Start 04/08/19 at 09:00 Famotidine (Pepcid Iv) 20 mg DAILY IV Last administered on 04/08/19at 08:14; Admin Dose 20 MG; Start 04/08/19 at 09:00 Sodium Chloride 1,000 ml @ 70 mls/hr [id number] IV Last administered on 04/08/19at 10:30; Admin Dose 70 MLS/HR; Start 04/08/19 at 10:00 Sodium Biphosphate/ Sodium Phosphate (Fleet Enema) 133 ml DAILY PRN [place] CONSTIPATION; Start 04/08/19 at 12:30 Benazepril HCl (Lotensin) 10 mg DAILY PO ; Start 04/08/19 at 14:30 JOSH HOLLINGSWORTH Apr 08, 2019 14:57
[2019-04-08 15:20] VITALS: BP 131/78; PULSE 99; RESP 18
[2019-04-08] MEDS: BENAZEPRIL 10 MG TAB PO SCH (15:49)
[2019-04-08 20:00] VITALS: BP 134/69; PULSE 91; RESP 19
[2019-04-09] VITALS (14 sets, daily range): BP systolic 109–160; BP diastolic 56–86; PULSE 81–103; RESP 15–21
[2019-04-09] MEDS: SOD CHLORIDE 0.9% 1,000 ML IV SCH ×2 (00:43→14:08)
--- NOTE | 2019-04-09 01:58 | CONS ---
DATE OF ADMISSION: 04/07/2019 DATE OF CONSULTATION: TYPE OF CONSULTATION: Gastroenterology. REQUESTING PHYSICIAN: Dr. Weaver, thank you for asking me to see Mrs. Matta in GI consultation. HISTORY OF PRESENT ILLNESS: The patient, as you know, is a 54-year-old female who h as been experiencing abdominal pain and vomiting intermittently for the past 10 days and vomiting has been occurring every 1 day or every 2 days or every 3 days. The vomitus did not contain any blood. No history of diarrhea, no history of fever, no history of jaundice. She did have some kind of a ga stric surgery in the past. She had a colonoscopy and removal of 10 polyps and was done about 10 days ago. No history of bleeding from the rectum. Stool has been dark brown. She drinks alcohol. SOCIAL HISTORY: She drinks alcohol occasionally, including marijuana periodically. REVIEW OF SYSTEM: Essentially as mentioned in history and physical. History of chronic anemia, hype rtension. MEDICATIONS PRIOR TO THE ADMISSION INCLUDE: 1. Benazepril. 2. Ibuprofen. 3. Zofran. 4. Cetirizine. 5. Biotin. PHYSICAL EXAMINATION: GENERAL: The patient is a 54-year-old female who at this time she is alert, she is well built. VITAL SIGNS: She is afebrile. Temperature 98.0. The blood pressure 131/78, pulse is 90. CARDIOVASCULAR: Normal heart sounds. RESPIRATORY: Normal breath sounds. ABDOMEN: Showed unremarkable findings. LABORATORY WORKUP: The WBC count is 11,300. It was 14,100 yesterday, hemoglobin is 8.2, MCV is 79.2 , potassium 3.4, bilirubin 0.3, AST 14, ALT 13, alkaline phosphatase 54. IMAGING STUDIES: Show that CAT scan of the abdomen revealing evidence of a small hiatal hernia, prior gastric surgery, status post cholecystectomy with mild dilatation of the biliary tree. Moderate retained stool in th e colon. A few scattered sigmoid diverticula noted. CLINICAL IMPRESSION: The patient presenting with history of periodic intermittent abdominal pain and vomiting. Certainly possible she could have a marginal ulcer from the prior gastric surgery; gastri tis must be considered. Choledocholithiasis is a possibility because she has a dilated biliary syste m on the CAT scan, although the liver functions are normal. Based on the fact that she has anemia, one should rule out a possibility of colorectal neoplasm. History of hypertension, history of gastric surgery, history of a cholecystectomy. PLAN: At this time, I would recommend upper endoscopy as well as MRCP. She may need a colonoscopy a s well. Once again, doctor, I thank you for this consultation. Dictated By: JOSE JACOBO MD NC/NTS Conf#: [id number] DID#: [id number] CC: ZIA WEAVER MD;*EndCC*
[2019-04-09] MEDS: DOCUSATE SODIUM 100 MG CAP PO SCH ×2 (08:47→20:41)
[2019-04-09] MEDS: LORATADINE 10 MG TAB PO SCH (08:47)
[2019-04-09] MEDS: POLYETHYLENE GLYCOL 17 GM PACKET PO SCH (08:47)
[2019-04-09] MEDS: FAMOTIDINE 20 MG INJ IV SCH (09:04)
[2019-04-09] MEDS: BENAZEPRIL 10 MG TAB PO SCH (09:05)
--- NOTE | 2019-04-09 13:06 | QN ---
Documentation Comment As physician advisor, I have reviewed the chart and found that inpatient status is appropriate for this patient. Syncope due to apparent anemia and blood loss, requiring extensive workup to include endoscopy. Stay has exceeded two midnights. LACY RODRIGUES MD Apr 09, 2019 13:06
--- NOTE | 2019-04-09 13:31 | PN ---
Date/Time of Note Date/Time of Note DATE: 04/09/19 TIME: 13:18 Assessment/Plan VTE Prophylaxis Risk score (from [facility] [place])>0 risk: 3 SCD applied (from [facility] [place]): Yes Pharmacological prophylaxis: other Pharm contraindication: other Lines/Catheters IV Catheter Type (from [facility]): Saline Lock Urinary Cath still in place: No Assessment/Plan Assessment/Plan 1. Syncope, considered hypotension related from dehydration and severe anemia 2. Dehydration from GI loss, improved with IVF 3. Intermitted abdominal pain with nausea and vomiting, EGD today 4. Microcytic anemia, recent colonoscopy with polys, EGD today, follow up with H/H 5. s/p gastric bypass 6. Hypokalemia and hypomagnesemia, resolved 7. Hypertension, controlled 8. DVT prophylaxis: SCDs Result Diagram: 04/09/1962004/09/19620 Results 24hrs Laboratory Tests Test 04/08/19 17:08 04/08/19 23:22 04/09/19 06:21 White Blood Count 11.3 H 11.1 H 10.2 Red Blood Count 3.37 L 3.24 L 3.24 L Hemoglobin 8.2 L 8.0 L 8.1 L Hematocrit 26.7 L 25.9 L 25.9 L Mean Corpuscular Volume 79.2 L 79.9 L 79.9 L Mean Corpuscular Hemoglobin 24.3 L 24.7 L 25.0 L Mean Corpuscular Hemoglobin Concent 30.7 L 30.9 L 31.3 L Red Cell Distribution Width 17.5 H 17.6 H 17.4 H Platelet Count 234 240 248 Mean Platelet Volume 8.3 8.9 8.7 Immature Granulocytes % 0.400 0.300 0.400 Neutrophils % 74.5 68.6 73.0 Lymphocytes % 17.8 22.6 16.8 Monocytes % 6.6 7.2 7.9 Eosinophils % 0.4 1.1 1.7 Basophils % 0.3 0.2 0.2 Nucleated Red Blood Cells % 0.0 0.0 0.0 Immature Granulocytes # 0.040 H 0.030 0.040 H Neutrophils # 8.4 H 7.6 H 7.4 Lymphocytes # 2.0 2.5 1.7 Monocytes # 0.7 0.8 0.8 Eosinophils # 0.0 0.1 0.2 Basophils # 0.0 0.0 0.0 Nucleated Red Blood Cells # 0.0 0.0 0.0 Sodium Level 144 Potassium Level 3.5 Chloride Level 106 Carbon Dioxide Level 29 Anion Gap 9 Blood Urea Nitrogen 10 Creatinine 0.48 Est Glomerular Filtrat Rate mL/min > 60 Glucose Level 119 Calcium Level 8.5 Total Bilirubin 0.3 Direct Bilirubin 0.00 Indirect Bilirubin 0.3 Aspartate Amino Transf (AST/SGOT) 17 Alanine Aminotransferase (ALT/SGPT) 12 L Alkaline Phosphatase 54 Total Protein 6.4 Albumin 3.2 L Globulin 3.20 Albumin/Globulin Ratio 1.00 Subjective 24 Hr Interval Summary Free Text/Dictation no abdominal pain today, no nausea or vomiting. no dizziness Exam/Review of Systems Exam Vitals Vital Signs Date Temp Pulse Resp B/P (MAP) Pulse Ox O2 O2 Flow FiO2 Time Delivery Rate 04/09/19 98.7 87 18 131/64 99 11:25 (86) 04/07/19 Room Air 22:30 Intake and Output 04/08/19 04/08/19 04/09/19 1515:00 23:00 07:00 IntakeIntake Total 965 ml 390 ml 350 ml BalanceBalance 965 ml 390 ml 350 ml Constitutional: alert, oriented, well developed Head: normocephalic, atraumatic Eyes: nl conjunctiva, EOMI, nl lids ENMT: nl external ears & nose, nl lips & teeth, nl nasal mucosa & septum Neck: supple, non-tender Respiratory: clear to auscultation, normal air movement; No congested cough, No crackles/rales, No diminished breath sounds, No intercostal retraction, No labored breathing, No respirations, No tactile fremitus, No wheezing, No other Cardiovascular: regular rate and rhythm, nl pulses; No bruits, No diastolic murmur, No edema, No gallop, No irregular rhythm, No jugular venous distention (JVD), No murmurs/extra sounds, No rub, No systolic murmur, No S3, No S4, No other Gastrointestinal: soft, nl liver, spleen, non-tender Musculoskeletal: nl extremities to inspection Extremities: normal pulses; No calf tenderness, No cyanosis, No clubbing, No edema, No pitting pedal edema, No palpable cord, No tenderness, No other Neurological: HEDIS SPECIALIST II-XII intact, nl mental status, nl speech, nl strength Results Results 24hrs Laboratory Tests Test 04/08/19 17:08 04/08/19 23:22 04/09/19 06:21 White Blood Count 11.3 H 11.1 H 10.2 Red Blood Count 3.37 L 3.24 L 3.24 L Hemoglobin 8.2 L 8.0 L 8.1 L Hematocrit 26.7 L 25.9 L 25.9 L Mean Corpuscular Volume 79.2 L 79.9 L 79.9 L Mean Corpuscular Hemoglobin 24.3 L 24.7 L 25.0 L Mean Corpuscular Hemoglobin Concent 30.7 L 30.9 L 31.3 L Red Cell Distribution Width 17.5 H 17.6 H 17.4 H Platelet Count 234 240 248 Mean Platelet Volume 8.3 8.9 8.7 Immature Granulocytes % 0.400 0.300 0.400 Neutrophils % 74.5 68.6 73.0 Lymphocytes % 17.8 22.6 16.8 Monocytes % 6.6 7.2 7.9 Eosinophils % 0.4 1.1 1.7 Basophils % 0.3 0.2 0.2 Nucleated Red Blood Cells % 0.0 0.0 0.0 Immature Granulocytes # 0.040 H 0.030 0.040 H Neutrophils # 8.4 H 7.6 H 7.4 Lymphocytes # 2.0 2.5 1.7 Monocytes # 0.7 0.8 0.8 Eosinophils # 0.0 0.1 0.2 Basophils # 0.0 0.0 0.0 Nucleated Red Blood Cells # 0.0 0.0 0.0 Sodium Level 144 Potassium Level 3.5 Chloride Level 106 Carbon Dioxide Level 29 Anion Gap 9 Blood Urea Nitrogen 10 Creatinine 0.48 Est Glomerular Filtrat Rate mL/min > 60 Glucose Level 119 Calcium Level 8.5 Total Bilirubin 0.3 Direct Bilirubin 0.00 Indirect Bilirubin 0.3 Aspartate Amino Transf (AST/SGOT) 17 Alanine Aminotransferase (ALT/SGPT) 12 L Alkaline Phosphatase 54 Total Protein 6.4 Albumin 3.2 L Globulin 3.20 Albumin/Globulin Ratio 1.00 Medications Medication Current Medications IV Flush (NS 3 ml) 3 ml PER PROTOCOL IV ; Start 04/07/19 at 21:30 Ondansetron HCl (Zofran Inj) 4 mg Q6H PRN IV NAUSEA/VOMITING Last administered on 04/08/19 10:30; Admin Dose 4 MG; Start 04/07/19 at 21:30 Nitroglycerin (Nitroglycerin (Sl Tab) 0.4 Mg) 1 tab Q5M PRN SL .CHEST PAIN; Start 04/07/19 at 21:30 Acetaminophen (Tylenol Tab) 650 mg Q6H PRN PO .PAIN 1-3 OR TEMP; Start 04/07/19 at 21:30 Docusate Sodium (Colace) 100 mg Q12H PRN PO .CONSTIPATION; Start 04/07/19 at 21:30 Bisacodyl (Dulcolax) 5 mg DAILY PRN PO .CONSTIPATION; Start 04/07/19 at 21:30 Morphine Sulfate (morphine) 2 mg Q4H PRN IV SEVERE PAIN LEVEL 7-10 Last administered on 04/08/19 19:32; Admin Dose 2 MG; Start 04/07/19 at 23:30 Docusate Sodium (Colace) 100 mg BID PO Last administered on 04/08/19 22:31; Admin Dose 100 MG; Start 04/08/19 at 09:00 Polyethylene Glycol (Miralax) 17 gm DAILY PO ; Start 04/08/19 at 09:00 Loratadine (Claritin) 10 mg DAILY PO Last administered on 04/08/19 08:14; Admin Dose 10 MG; Start 04/08/19 at 09:00 Famotidine (Pepcid Iv) 20 mg DAILY IV Last administered on 04/09/19 09:04; Admin Dose 20 MG; Start 04/08/19 at 09:00 Sodium Chloride 1,000 ml @ 70 mls/hr [id number] IV Last administered on 04/09/19 00:43; Admin Dose 70 MLS/HR; Start 04/08/19 at 10:00 Sodium Biphosphate/ Sodium Phosphate (Fleet Enema) 133 ml DAILY PRN [place] CONSTIPATION Last administered on 04/08/19 15:49; Admin Dose 133 ML; Start 04/08/19 at 12:30 Benazepril HCl (Lotensin) 10 mg DAILY PO Last administered on 04/09/19 09:05; Admin Dose 10 MG; Start 04/08/19 at 14:30 JOANNE COY MD Apr 09, 2019 13:30
--- NOTE | 2019-04-09 15:14 | PREAC ---
Date/Time of Note Date/Time of Note DATE: 04/09/19 TIME: 15:13 Anesthesia Eval and Record Evaluation Time Pre-Procedure Interview DATE: 04/09/19 TIME: 15:13 Age 54 Sex female NPO: 8 hrs Preoperative diagnosis Vomiting Planned procedure EGD Past Medical History Past Medical History: Includes Cardio: HTN GI: GERD, Obesity Heme: Anemia Surgery & Anesthesia Issues No known issue Meds Anticoagulation: No Beta Aleida within 24 hr: No Reason Beta Aleida not given: Pt. not on B-Aleida Active Scripts Ondansetron Hcl* (Zofran*) 4 Mg Tablet, 4 MG PO Q8H PRN for NAUSEA AND/OR VOMITING, #30 TAB Prov:JENNIFER GARCIA MD 04/05/19 Ibuprofen* (Motrin*) 600 Mg Tab, 600 MG PO Q8 PRN for PAIN AND/OR INFLAMMATION, #30 TAB Prov:JENNIFER GARCIA MD 04/05/19 Reported Medications Benazepril Hcl* (Benazepril Hcl*) 10 Mg Tablet, 10 MG PO DAILY, #30 TAB 11/02/18 Biotin (Biotin) 5,000 Mcg Tab.rapdis, 5000 MCG PO 11/02/18 Cetirizine Hcl* (Cetirizine Hcl*) 10 Mg Tablet, 10 MG PO DAILY, #30 TAB 11/02/18 Current Medications IV Flush (NS 3 ml) 3 ml PER PROTOCOL IV ; Start 04/07/19 at 21:30 Ondansetron HCl (Zofran Inj) 4 mg Q6H PRN IV NAUSEA/VOMITING Last administered on 04/08/19at 10:30; Admin Dose 4 MG; Start 04/07/19 at 21:30 Nitroglycerin (Nitroglycerin (Sl Tab) 0.4 Mg) 1 tab Q5M PRN SL .CHEST PAIN; Start 04/07/19 at 21:30 Acetaminophen (Tylenol Tab) 650 mg Q6H PRN PO .PAIN 1-3 OR TEMP; Start 04/07/19 at 21:30 Docusate Sodium (Colace) 100 mg Q12H PRN PO .CONSTIPATION; Start 04/07/19 at 21:30 Bisacodyl (Dulcolax) 5 mg DAILY PRN PO .CONSTIPATION; Start 04/07/19 at 21:30 Morphine Sulfate (morphine) 2 mg Q4H PRN IV SEVERE PAIN LEVEL 7-10 Last administered on 04/08/19at 19:32; Admin Dose 2 MG; Start 04/07/19 at 23:30 Docusate Sodium (Colace) 100 mg BID PO Last administered on 04/08/19at 22:31; Admin Dose 100 MG; Start 04/08/19 at 09:00 Polyethylene Glycol (Miralax) 17 gm DAILY PO ; Start 04/08/19 at 09:00 Loratadine (Claritin) 10 mg DAILY PO Last administered on 04/08/19at 08:14; Admin Dose 10 MG; Start 04/08/19 at 09:00 Famotidine (Pepcid Iv) 20 mg DAILY IV Last administered on 04/09/19at 09:04; Admin Dose 20 MG; Start 04/08/19 at 09:00 Sodium Chloride 1,000 ml @ 70 mls/hr [id number] IV Last administered on 04/09/19at 14:08; Admin Dose 70 MLS/HR; Start 04/08/19 at 10:00 Sodium Biphosphate/ Sodium Phosphate (Fleet Enema) 133 ml DAILY PRN [place] CONSTIPATION Last administered on 04/08/19at 15:49; Admin Dose 133 ML; Start 04/08/19 at 12:30 Benazepril HCl (Lotensin) 10 mg DAILY PO Last administered on 04/09/19at 09:05; Admin Dose 10 MG; Start 04/08/19 at 14:30 Meds reviewed: Yes Allergies Coded Allergies: metoclopramide (Unverified Allergy, Unknown, 11/02/18) Allergies Reviewed: Yes Labs/Studies Labs Reviewed: Reviewed by anesthesiologist Result Diagram: 04/09/1962004/09/19 0621 Laboratory Tests 04/09/19 06:21 test: N/A Studies: ECG (n/a), CXR (n/a) Pre-procedure Exam Last vitals Vital Signs Date Temp Pulse Resp B/P (MAP) Pulse Ox O2 O2 Flow FiO2 Time Delivery Rate 04/09/19 98.9 89 15 134/73 99 Room Air 14:58 (93) Airway: Adequate mouth opening, Adequate thyromental dist Mallampati: Mallampati II Teeth: Normal Lung: Normal Heart: Normal ASA Physical Status ASA physical status: 2 Emergency: None Planned Anesthetic General/MAC: MAC Planned Pain Management Parenteral pain med Pre-operative Attestations Prior to commencing anesthesia and surgery, the patient was re-evaluated, there was verification of: *The patient's identity *The results of appropriate recent lab work and preoperative vital signs *The above evaluation not changing prior to induction *Anesthetic plan, risk benefits, alternative and complications discussed with patient/family; questions answered; patient/family understands, accepts and wishes to proceed. PEÑA LLOYD MD Apr 09, 2019 15:14
--- NOTE | 2019-04-09 15:29 | PAC ---
Date/Time of Note Date/Time of Note DATE: 04/09/19 TIME: 15:29 Post-Anesthesia Notes Post-Anesthesia Note Last documented vital signs Vital Signs Date Temp Pulse Resp B/P (MAP) Pulse Ox O2 O2 Flow FiO2 Time Delivery Rate 04/09/19 98.9 89 15 134/73 99 Room Air 15:30 (93) Activity: WNL Respiratory function: WNL Cardiovascular function: WNL Mental status: Baseline Pain reasonably controlled: Yes Hydration appropriate: Yes Nausea/Vomiting absent: Yes PEÑA LLOYD MD Apr 09, 2019 15:29
[2019-04-09] MEDS ORDERED: PROPOFOL 40 ML ONE (15:42)
[2019-04-09] MEDS: ONDANSETRON 4 MG INJ IV PRN (22:43)
[2019-04-10 01:07] VITALS: BP 134/77; PULSE 85; RESP 18
[2019-04-10 07:25] VITALS: BP 137/75; PULSE 96; RESP 19
[2019-04-10] MEDS: FAMOTIDINE 20 MG INJ IV SCH (09:11)
[2019-04-10] MEDS: LORATADINE 10 MG TAB PO SCH (09:11)
[2019-04-10] MEDS: DOCUSATE SODIUM 100 MG CAP PO SCH (09:12)
[2019-04-10] MEDS: POLYETHYLENE GLYCOL 17 GM PACKET PO SCH ×3 (09:12→10:59)
[2019-04-10] MEDS: BENAZEPRIL 10 MG TAB PO SCH (09:12)
[2019-04-10] MEDS ORDERED: POTASSIUM CHLORIDE (SR) 20 MEQ TAB PO STA (14:36)
--- NOTE | 2019-04-10 14:50 | DS ---
Date/Time of Note Date/Time of Note DATE: 04/10/19 TIME: 14:41 Discharge Summary Admission/Discharge Info Admit Date/Time Apr 09, 2019 at 13:02 Discharge Date/Time Discharge Diagnosis 1. Syncope, considered hypotension related from dehydration and severe anemia, resolved 2. Dehydration from GI loss, improved 3. Erosive esophagitis and gastric anaslamosis ulcer, protonis and karafate, follow up with GI for biopsy result 4. Microcytic iron deficiency anemia, recent colonoscopy with polys, EGD on 03/13, iron supplement, follow up with PCP 5. s/p gastric bypass 6. Hypokalemia and hypomagnesemia, corrected 7. Hypertension, controlled Patient Condition: Stable Hospital Course This is a 54-year-old female who is here for syncope. The patient was seen here on Monday for vomiting abdominal pain with a negative work-up and was sent home. The patient says that she is had nausea vomiting since Monday and her last BM was moved Monday she says she has a chronic history of anemia. She said today she went to the restroom she started feeling bad. She said she finished and went to the living room where she was sitting in a couch she called her family members of her because she was feeling very weak and dizzy. She then apparently passed out. Family states that she was unresponsive for about a minute. The patient says she does remember much of anything. She says she does vaguely remember her son yelling out her to wake up. She had no preceding symptoms other than generalized weakness and dizziness. She had no chest pain shortness of breath. No recent fever. The patient's had one bowel movement in the past 4 days but it has no urged to have one because she is really not eating much food. No headache no focal neurological complaints and speech change. The syncope is considered dehydration induced hypotension related, patient got IVF rehydration, no dizziness of syncope after admission. Echocardiography is unremarkable. Patient is anemic with iron deficiency, from either iron absorption issue or GI bleeding. Recent colonoscopy is unremarkable with only several polyps. EGD on 04/09/2019 with erosive esophagitis and a gastric ulcer that are likely the sources of bleeding. Patient will be on protonix and karafate along with iron supplement. She is instructed to follow up with GI for biopsy result. Home Meds Active Scripts Sucralfate* (Carafate*) 1 Gm/10 Ml Susp, 1 GM PO QID for 30 Days, EA Prov:JOANNE COY MD 04/10/19 Ferrous Sulfate* (Ferrous Sulfate*) 325 Mg Tabec, 325 MG PO BID for 30 Days, TAB Prov:JOANNE COY MD 04/10/19 Pantoprazole* (Protonix*) 40 Mg Tablet.dr, 40 MG PO DAILY for 30 Days, TAB Prov:JOANNE COY MD 04/10/19 Reported Medications Benazepril Hcl* (Benazepril Hcl*) 10 Mg Tablet, 10 MG PO DAILY, #30 TAB 11/02/18 Biotin (Biotin) 5,000 Mcg Tab.rapdis, 5000 MCG PO 11/02/18 Cetirizine Hcl* (Cetirizine Hcl*) 10 Mg Tablet, 10 MG PO DAILY, #30 TAB 11/02/18 Discontinued Scripts Ondansetron Hcl* (Zofran*) 4 Mg Tablet, 4 MG PO Q8H PRN for NAUSEA AND/OR VOMITING, #30 TAB Prov:JENNIFER GARCIA MD 04/05/19 Ibuprofen* (Motrin*) 600 Mg Tab, 600 MG PO Q8 PRN for PAIN AND/OR INFLAMMATION, #30 TAB Prov:JENNIFER GARCIA MD 04/05/19 Follow-up Plan PCP in one week GI Dr. Turner in one week for biopsy result Primary Care Provider Not On Staff Doctor Pending Labs Laboratory Tests Test 04/10/19 04:30 White Blood Count 10.1 10^3/ul (4.8-10.8) Red Blood Count 3.10 10^6/ul (4.20-5.40) Hemoglobin 7.9 g/dl (12.0-16.0) Hematocrit 25.2 % (37.0-47.0) Mean Corpuscular Volume 81.3 fl (82.0-101.0) Mean Corpuscular Hemoglobin 25.5 pg (29.0-33.0) Mean Corpuscular Hemoglobin Concent 31.3 g/dl (32.0-37.0) Red Cell Distribution Width 17.5 % (11.5-14.5) Platelet Count 247 10^3/UL (140-415) Mean Platelet Volume 9.0 fl (7.4-10.4) Immature Granulocytes % 0.300 % (0.001-0.429) Neutrophils % 72.4 % (39.0-77.0) Lymphocytes % 16.6 % (15.0-51.0) Monocytes % 6.6 % (0.0-11.0) Eosinophils % 3.9 % (0.0-7.0) Basophils % 0.2 % (0.0-2.0) Nucleated Red Blood Cells % 0.0 /100WBC (0.0-0.0) Immature Granulocytes # 0.030 10^3/ul (0.0-0.031) Neutrophils # 7.3 10^3/ul (1.6-7.5) Lymphocytes # 1.7 10^3/ul (0.8-2.9) Monocytes # 0.7 10^3/ul (0.3-0.9) Eosinophils # 0.4 10^3/ul (0.0-0.5) Basophils # 0.0 10^3/ul (0.0-0.1) Nucleated Red Blood Cells # 0.0 10^3/ul (0.0-0.0) Sodium Level 139 mmol/L (135-144) Potassium Level 3.3 mmol/L (3.5-5.1) Chloride Level 104 mmol/L (97-110) Carbon Dioxide Level 29 mmol/L (21-31) Anion Gap 6 (5-13) Blood Urea Nitrogen 7 mg/dl (7-20) Creatinine 0.51 mg/dl (0.44-1.00) Est Glomerular Filtrat Rate mL/min > 60 mL/min (>60) Glucose Level 114 mg/dl (70-220) Calcium Level 8.4 mg/dl (8.4-10.2) Total Bilirubin 0.3 mg/dl (0.2-1.3) Direct Bilirubin 0.00 mg/dl (0.00-0.20) Indirect Bilirubin 0.3 mg/dl (0-1.1) Aspartate Amino Transf (AST/SGOT) 16 IU/L (15-46) Alanine Aminotransferase (ALT/SGPT) 25 IU/L (13-69) Alkaline Phosphatase 51 IU/L (42-121) Total Protein 6.5 g/dl (6.1-8.1) Albumin 3.2 g/dl (3.3-4.9) Globulin 3.30 g/dl (1.3-3.2) Albumin/Globulin Ratio 0.96 JOANNE COY MD Apr 10, 2019 14:50
[2019-04-10 15:20] VITALS: BP 123/75; PULSE 88; RESP 18
[2019-04-10] MEDS ORDERED: SOD FERRIC GLUC COMPLX 125 MG in SOD CHLORIDE 0.9% 100 ML IVPB SCH (17:00)
== END 2019-04-10 18:20 | disposition home or self-care (01) | DRG 812 ==
LOC: E/R 17:48 → TEL 21:11 → OBSVTOIN 04-09 13:02 → MS1 04-10 01:03
PROVIDERS: ADMIT Family Medicine; ATTEND Internal Medicine
PROC: 0DB68ZX Excision of Stomach, Via Natural or Artificial Opening Endoscopic, Diagnostic (ICD-10-PCS; 2019-04-09)
PROC: 0DB58ZX Excision of Esophagus, Via Natural or Artificial Opening Endoscopic, Diagnostic (ICD-10-PCS; principal; 2019-04-09 15:00)
DX: D50.9 Iron deficiency anemia, unspecified (principal); K22.10 Ulcer of esophagus without bleeding; E86.0 Dehydration; I95.9 Hypotension, unspecified; R55 Syncope and collapse; Z72.0 Tobacco use; R11.2 Nausea with vomiting, unspecified; R10.13 Epigastric pain; E87.6 Hypokalemia; I10 Essential (primary) hypertension; D72.829 Elevated white blood cell count, unspecified; E83.42 Hypomagnesemia; K59.00 Constipation, unspecified; Z98.84 Bariatric surgery status; K25.9 Gastric ulcer, unspecified as acute or chronic, without hemorrhage or perforation; K21.0 Gastro-esophageal reflux disease with esophagitis
CPT/HCPCS: 36415; 70450; 70460; 71045; 74178; 74181; 80053; 80061; 82150; 82306; 82728; 83036; 83540; 83690; 83735; 84443; 84484; 85025; 85610; 85730; 88305; 88312; 88313; 93005; 93306; 97162; G0378; J2270; J2405; J2916; J3475; J3480; J7030; J7040; Q9967

== ENCOUNTER 2019-05-18 12:41 | Emergency (ER) | payer OTHER ==
[~2019-05-18] VITALS: Ht 167.6 cm; Wt 100.0 kg
[~2019-05-18 12:41] MED LIST changes: -IBUP-1542 PO; -ONDA4TAB8 PO
[2019-05-18 12:46] VITALS: BP 171/100; PULSE 84; RESP 16; Ht 167.6 cm; Wt 100.0 kg
[2019-05-18] MEDS ORDERED: BENAZEPRIL 10 MG TAB PO ONE (14:00)
[2019-05-18] MEDS ORDERED: ACETAMINOPHEN 325 MG TAB PO ONE (14:00)
== END 2019-05-18 14:33 | disposition home or self-care (01) ==
LOC: E/R 12:41
DX: I16.0 Hypertensive urgency (principal); Z76.0 Encounter for issue of repeat prescription
CPT/HCPCS: 99283